=== PATIENT | male | born 1980 | race Caucasian/White ===

== ENCOUNTER → 2024-02-04 | Outpatient (CLI) | payer BC | END | disposition home or self-care (01) | LOC: LABWHC1 10:41 | PROVIDERS: ATTEND Surgery Plastic and Reconstructive Surgery | DX: Z01.89 Encounter for other specified special examinations (principal); R00.1 Bradycardia, unspecified | CPT/HCPCS: 36415; 93005 ==

== ENCOUNTER 2024-02-26 09:14 | Day surgery (SDC) | payer BC ==
--- NOTE | 2024-02-26 07:40 | P.GSHP ---
History of Present Illness H&P Date: 02/26/24 CHIEF COMPLAINT: Colon screen HISTORY OF PRESENT ILLNESS: The patient is a 43-year-old male who presents for colon screen. Lower endoscopy was offered for further evaluation and management. PAST MEDICAL HISTORY: Please see list. PAST SURGICAL HISTORY: Please see list. MEDICATIONS: Please see list. ALLERGIES: Please see list. SOCIAL HISTORY: No illicit drug use FAMILY HISTORY: No reports of Crohn disease or ulcerative colitis. REVIEW OF ORGAN SYSTEMS: CONSTITUTIONAL: No reports of fevers or chills. PHYSICAL EXAM: VITAL SIGNS: Stable GENERAL: Well-developed pleasant in no acute distress. HEENT: No scleral icterus. Extraocular movements grossly intact. Moist buccal mucosa. NECK: Supple without lymphadenopathy. CHEST: Unlabored respirations. Equal bilateral excursions. CARDIOVASCULAR: Regular rate and rhythm. Distal 2+ pulses. ABDOMEN: Soft, nontender, nondistended. MUSCULOSKELETAL: No clubbing, cyanosis, or edema. ASSESSMENT: 1. Colon screen. PLAN: 1. Recommend proceeding with a lower endoscopy Past Medical History Past Medical History: GERD/Reflux Additional Past Medical History / Comment(s): Routine colonoscopy. History of Any Multi-Drug Resistant Organisms: None Reported Additional Past Surgical History / Comment(s): Immature palate. Past Anesthesia/Blood Transfusion Reactions: No Reported Reaction Smoking Status: Former smoker - Past Family History Father Family Medical History: No Reported History Mother Family Medical History: Cancer Medications and Allergies Home Medications Medication Instructions Recorded Confirmed Type [facility] Pen 1 dose INHALATION DAILY PRN 02/24/24 02/24/24 History Ibuprofen [Motrin Ib] 200 mg PO Q6H PRN 02/24/24 02/24/24 History Allergies Allergy/AdvReac Type Severity Reaction Status Date / Time seasonal Allergy runny Uncoded 02/24/24 13:50 nose, itchy eyes
[~2024-02-26 09:14] MED LIST: LIDOCAINE 1% (10MG/ML) FOR IV START INTRADERMA PRN
[2024-02-26 09:44] VITALS: RESP 16; TEMP 98.1
[2024-02-26] MEDS: LACTATED RINGERS 1,000 ML IV SCH (09:45)
[2024-02-26] MEDS ORDERED: PROPOFOL 10 MG/ML 20 ML VIAL IV ONE (09:50)
--- NOTE | 2024-02-26 10:16 | P.PCN ---
Date of Procedure: 02/26/24 Description of Procedure: PREOPERATIVE DIAGNOSIS: Colonoscopy screening POSTOPERATIVE DIAGNOSIS: Tubular adenoma sigmoid colon Sigmoid diverticulosis OPERATION: Colonoscopy to the ileocecal valve and appendiceal orifice, cecum Colonoscopy with hot snare polypectomy SURGEON: Quyen Norwood MD. ANESTHESIA: MAC. INDICATIONS: The patient is an 43-year-old male who presents for further screening. Benefits and risks were described and informed consent was obtained. DESCRIPTION OF PROCEDURE: The patient had undergone GoLytely prep. The patient had been brought into the operating room and laid in the left lateral decubitus position. After adequate intravenous sedation, the rectum was examined with 2% lidocaine jelly. The prostate was unremarkable. No external hemorrhoids were encountered. The rectal tone was within normal limits. No lesions were palpated in the rectal vault. An Olympus colonoscope was advanced until the cecum, ileocecal valve and appendiceal orifice were clearly viewed. The prep was good. Sigmoid diverticulosis was encountered. Colonic polyps were found and removed. No evidence of focal colitis was found. Retroflexion of the scope demonstrated grade 2 internal hemorrhoids without active bleeding or inflammation. The colon was desufflated. The patient had tolerated the procedure well. Withdrawal time was over 6 minutes. FINDINGS: Aronchick preparation quality scale 1 (1-5) Internal hemorrhoids, grade 1 External hemorrhoids, grade 1. No arteriovenous malformations. Sigmoid diverticulosis Removal of 1 polyps: - Snare polypectomy 20 cm from the anal verge, 5 mm tubulovillous adenoma No focal colitis. RECOMMENDATIONS: Colonoscopy in 3 years2026 Plan - Discharge Summary Discharge Rx Participant: No New Discharge Prescriptions: Continue [facility] Pen 1 dose INHALATION DAILY PRN PRN Reason: Anxiety Ibuprofen [Motrin Ib] 200 mg PO Q6H PRN PRN Reason: Pain Discharge Medication List Hhc Pen 1 dose INHALATION DAILY PRN 02/24/24 [History] Ibuprofen [Motrin Ib] 200 mg PO Q6H PRN 02/24/24 [History] Follow up Appointment(s)/Referral(s): Quyen Norwood MD [STAFF PHYSICIAN] - 03/10/24 6:15 pm (TELEHEALTH) Patient Instructions/Handouts: Diverticulosis (DC), Colorectal Polyps (GEN) Activity/Diet/Wound Care/Special Instructions: Repeat colonoscopy in 3 years2026 Discharge Disposition: HOME SELF-CARE
[2024-02-26 10:40] VITALS: BP 113/69; PULSE 74
== END 2024-02-26 10:55 | disposition home or self-care (01) ==
LOC: ORWHC2ENDO 09:14
PROVIDERS: ATTEND Surgery Plastic and Reconstructive Surgery
DX: Z12.11 Encounter for screening for malignant neoplasm of colon (principal); K57.30 Diverticulosis of large intestine without perforation or abscess without bleeding; K64.0 First degree hemorrhoids; K21.9 Gastro-esophageal reflux disease without esophagitis; Z87.891 Personal history of nicotine dependence; Z79.899 Other long term (current) drug therapy
CPT/HCPCS: 88305; 45385; J2704

== ENCOUNTER → 2024-02-27 | Day surgery (SDC) | payer BC ==
[~2024-02-27] MED LIST changes: +DEXAMETHASONE SOD PHOSPHATE 4 MG/ML 1 ML VIAL ONE; +GLYCOPYRROLATE 0.2 MG/ML 2 ML VIAL ONE; +HYDROmorphone (PF) 1 MG/ML ONE; +HYDROmorphone 0.5 MG/0.5 ML SYRINGE IVP PRN; +KETOROLAC 30 MG/ML 1 ML VIAL ONE; +LIDOCAINE 1% INJ 10MG/ML (20 ML MDV) ONE; +LIDOCAINE 4% LTA KIT (4 ML) TOPICAL ONE; +MIDAZOLAM 2 MG/2 ML VIAL ONE; +NEOSTIGMINE 1 MG/ML 10 ML VIAL ONE; +ONDANSETRON 4 MG/2 ML VIAL IVP PRN; +PROPOFOL 10 MG/ML 20 ML VIAL IV ONE; +ROCURONIUM 10 MG/ML (5 ML VIAL) IV ONE; +ROPIVACAINE 5 MG/ML 30 ML VIAL ONE; +SCOPOLAMINE 1 MG/72 HR PATCH TRANSDERM ONE; +SUCCINYLCHOLINE CHLORIDE 200 MG/10 ML VIAL IV ONE; +fentaNYL (PF) 50 MCG/ML 2 ML AMP ONE
--- NOTE | 2024-02-27 10:53 | P.GSHP ---
History of Present Illness H&P Date: 02/27/24 CHIEF COMPLAINT: Inguinal hernia, right. HISTORY OF PRESENT ILLNESS: The patient is a 43-year-old male who presents with a history of swelling and pain along the right groin. He has noted increased swelling including pain of the area. Now he presents for repair of his inguinal hernia. PAST MEDICAL HISTORY: Please see list. PAST SURGICAL HISTORY: Please see list. MEDICATIONS: Please see list. ALLERGIES: Please see list. SOCIAL HISTORY: No illicit drug use FAMILY HISTORY: No reports of Crohn disease or ulcerative colitis. REVIEW OF ORGAN SYSTEMS: CONSTITUTIONAL: No reports of fevers or chills. No reports of weight loss despite prior attempts. GI: Denies any blood in stools or constipation. PHYSICAL EXAM: VITAL SIGNS: Stable GENERAL: Well-developed pleasant in no acute distress. HEENT: No scleral icterus. Extraocular movements grossly intact. Moist buccal mucosa. NECK: Supple without lymphadenopathy. CHEST: Unlabored respirations. Equal bilateral excursions. CARDIOVASCULAR: Regular rate and rhythm. Distal 2+ pulses. ABDOMEN: Soft, nondistended. No peritoneal signs. Moderate tenderness right lower quadrant MUSCULOSKELETAL: No clubbing, cyanosis, or edema. ASSESSMENT: 1. Inguinal hernia, right initial and symptomatic. PLAN: 1. Recommend proceeding robotic inguinal repair with mesh with possible bilateral approach. 2. Benefits and risks of surgical intervention was discussed including possibility of open technique. 3. DVT prophylaxis. 4. Antibiotic prophylaxis. 5. Non narcotic pain management including abdominal wall block described 6. Blood sugar glucose described. 7. Weight loss management described. 8. Obtain CBC and CMP on day of procedure 9. Flomax preop to address urinary retention Past Medical History Past Medical History: GERD/Reflux History of Any Multi-Drug Resistant Organisms: None Reported Additional Past Surgical History / Comment(s): Immature palate surgery Past Anesthesia/Blood Transfusion Reactions: No Reported Reaction Smoking Status: Former smoker - Past Family History Mother Family Medical History: Cancer Father Family Medical History: No Reported History Medications and Allergies Home Medications Medication Instructions Recorded Confirmed Type [facility] Pen 1 dose INHALATION DAILY PRN 02/24/24 02/26/24 History Ibuprofen [Motrin Ib] 200 mg PO Q6H PRN 02/24/24 02/26/24 History Allergies Allergy/AdvReac Type Severity Reaction Status Date / Time seasonal Allergy runny Uncoded 02/24/24 13:50 nose, itchy eyes
[2024-02-27] MEDS: LIDOCAINE 1% (10MG/ML) FOR IV START INTRADERMA ONE (12:43)
[2024-02-27] MEDS: LACTATED RINGERS 1,000 ML IV SCH (12:43)
[2024-02-27] MEDS: TAMSULOSIN 0.4 MG CAP.ER.24H PO STA (12:48)
[2024-02-27] MEDS: ACETAMINOPHEN TAB 500 MG TAB PO PRN (12:48)
[2024-02-27] MEDS: MELOXICAM 7.5 MG TAB PO PRN (12:48)
[2024-02-27] MEDS: DEXAMETHASONE SOD PHOSPHATE 4 MG/ML 1 ML VIAL IV ONE (12:50)
[2024-02-27] MEDS: ONDANSETRON 4 MG/2 ML VIAL IVP ONE (12:51)
[2024-02-27] MEDS: MIDAZOLAM 2 MG/2 ML VIAL IVP ONE (13:00)
[2024-02-27 13:01] LABS: ALT 60 U/L (4-49); AST 30 U/L (17-59); African American GFR (CKD) >90 (>60 ml/min/1.73 sqM); Albumin 4.1 g/dL (3.5-5.0); Alkaline Phosphatase 77 U/L (38-126); Anion Gap 3 mmol/L; Blood Urea Nitrogen 16 mg/dL (9-20); Carbon Dioxide 28 mmol/L (22-30); Chloride 109 mmol/L (98-107); Glucose 98 mg/dL (74-99); Non-African American GFR(CKD) >90 (>60 ml/min/1.73 sqM); Potassium 4.1 mmol/L (3.5-5.1); Sodium 140 mmol/L (137-145); Total Bilirubin 0.8 mg/dL (0.2-1.3); Total Protein 6.5 g/dL (6.3-8.2)
[2024-02-27 13:03] LABS: Basophils % (A) 0 %; Eosinophils # (A) 0.1 k/uL (0-0.7); Eosinophils % (A) 2 %; HCT 49.5 % (39.0-53.0); HGB 17.4 gm/dL (13.0-17.5); Lymphocytes # (A) 2.1 k/uL (1.0-4.8); Lymphocytes % (A) 30 %; MCH 30.4 pg (25.0-35.0); MCV 86.7 fL (80.0-100.0); Mean Platelet Volume 7.7; Monocytes # (A) 0.4 k/uL (0-1.0); Monocytes % (A) 6 %; Neutrophils # (A) 4.2 k/uL (1.3-7.7); Neutrophils % (A) 60 %; Platelet Count 230 k/uL (150-450); RBC 5.71 m/uL (4.30-5.90); RDW 11.6 % (11.5-15.5)
[2024-02-27] MEDS: fentaNYL (PF) 50 MCG/ML 2 ML AMP IVP ONE (13:05)
--- NOTE | 2024-02-27 13:13 | P.ANPRN ---
Procedure Note - Anesthesia - Nerve Block Performed Bilateral Erector Spinae Single Time Out Performed: Yes Date of Procedure: 02/27/24 Procedure Start Time: 13:00 Procedure Stop Time: 13:06 Location of Patient: PreOp Indication: Acute Post-Operative Pain, Analgesia, Requested by Surgeon Sedation Type: Sedate with meaningful contact maintained Preparation: Sterile Prep Position: Prone Needle Types: Pajunk Needle Gauge: 21 Ultrasound used to visualize needle placement: Yes Ultrasound used to observe medication spread: Yes Injectate: 0.5% Ropivacaine (see comment for volume) (Ropiv 20 ml + Decadron 4mg----Each order dispatcher chief. L1 level) Blood Aspirated: No Pain Paresthesia on Injection Noted: No Resistance on Injection: Normal Image Stored and Saved: Yes Events: Uneventful and Well Tolerated
[2024-02-27] MEDS: HEPARIN SODIUM,PORCINE 5,000 UNIT/ML 1 ML VIAL SQ PRN (13:19)
[2024-02-27] MEDS: BUPIVACAINE (PF) 0.5% 30 ML VIAL SQ ONE (14:13)
[2024-02-27] MEDS: LIDOCAINE 1%-EPI 1:100,000 20 ML VIAL SQ ONE (14:53)
[2024-02-27] MEDS: LACTATED RINGERS 1,000 ML IV ONE (16:14)
[2024-02-27 16:50] VITALS: TEMP 97.2
[2024-02-27 16:51] VITALS: RESP 14
--- NOTE | 2024-02-27 17:02 | P.OP ---
Date of Procedure: 02/27/24 Description of Procedure: SURGEON: QUYEN NORWOOD MD PREOPERATIVE DIAGNOSES: 1. Right inguinal hernia, initial 2. Asthma 3. Elevated liver enzymes 4. Gastroesophageal reflux disease POSTOPERATIVE DIAGNOSES: 1. Right inguinal hernia, initial, indirect 2. Asthma 3. Elevated liver enzymes 4. Gastroesophageal reflux disease 5. Abdominal adhesions, periumbilical 6. Right obturator hernia, initial OPERATION: 1. Robotic-assisted da Randal Xi laparoscopic reduction repair of initial inc arcerated right indirect inguinal hernia with mesh, 11.[address] 2. Robotic-assisted da Randal Xi laparoscopic lysis of adhesions 3. Excision of subfascial right inguinal lipoma, 9 x 6 cm ANESTHESIA: General with local anesthetic ESTIMATED BLOOD LOSS: 5 mL. SPECIMENS: 1. Incarcerated right inguinal lipoma COMPLICATIONS: None. FINDINGS: 1. Incarcerated right inguinal hernia 2 cm with dilated internal/external inguinal ring 2. Reconstruction of internal and external inguinal ring 3. Subfascial lipoma 9 x 6 cm, right groin 4. Right obturator hernia INDICATIONS: The patient is a 89year-old male who presents with history of initial right inguinal hernia. Now he presents for definitive surgical intervention. Laparoscopic versus open and robotic approaches were discussed including bilateral approach. Benefits and risks including bleeding, infection, chronic groin pain, sterility were reviewed. Placement of mesh was also described. Informed consent was obtained. DESCRIPTION: In the preoperative area, an abdominal block was placed per anesthesia. The patient was brought to the operating room and initially laid in supine position. The abdomen had been prepped and draped in standard sterile fashion. Ioban draping was also placed. Prior to incision, a timeout protocol was confirmed with surgical team regarding patient's name including procedures to be performed. Initial positioning for the robotic assisted ports were selected 20 cm superior to the target anatomy. A 0 degree 5 mm laparoscopic trocar entry was performed at the left upper quadrant. The abdomen was insufflated to 15 mmHg which he tolerated well. Diagnostic laparoscopy demonstrated no injury to bowel, viscera or mesentery. Adhesions about the umbilicus omentum to abdominal wall was identified. Along the right groin, indirect hernia involving incarcerated omentum was found. The left groin was unremarkable for indirect or direct inguinal hernia. Next, along the epigastrium, 8 mm robot trocar was placed. An 8-mm robotic trocar was placed under direct visualization at the right upper quadrant. An 8 mm port was placed at the left upper quadrant. All trocars were positioned between 10-cm apart from each other. An accessory 12 mm trocar was placed along the right upper abdominal wall. The inguinal contents were reduced after pressure. The ThinkSuit XI robot was primed, draped, prepared for docking along upper abdomen of the patient. The patient was positioned 14 steep Trendelenburg position. I then went to the ThinkSuit Xi console. The nurse practitioner physicians assistant was at bedside for exchange of the robot arms and equipment. Omental adhesions to the umbilicus identified and lysed using scissors with cautery. Attention was brought to the right groin. The right inguinal hernia sac was evaginated whereby the peritoneum was scored using Endo scissors with cautery and vessel sealer . As the hernia sac with incarcerated subfascial lipoma was reduced and resected of the obturator and inguinal type. A concurrent obturator hernia was found of the right groin and also similarly reduced. The peritoneal sac of the hernia was stripped. The sac was resected and then passed off for further pathological analysis. The size of the hernia defect was 2 cm with intraoperative films obtained. Dilated internal and external ring were identified. Using a 2-0 VLOC nonabsorbable, the dilated external ring was reapproximated from lateral to medial involving the shelving portion of the inguinal ligament and conjoined tendon. Similarly, the internal ring was reapproximated from lateral to medial using the floor of the inguinal ligament and conjoined tendon. The peritoneal defect of the right inguinal hernia site was closed using a running pursestring suture. The obturator inguinal hernia sac was excised and incorporated in the closure of the peritoneum using nonabsorbable pursestring suture. As an onlay, an 11.[address] mesh by [employer] was cut in half and entered into the abdominal cavity. The mesh was tacked to the pelvis using 2-0 VLOC 9- inch length sutures. A final endoscopic imaging was obtained. The robot was undocked from the patient's bedside. I then rescrubbed into the case. Insufflation was released from the abdominal cavity and all instruments were removed from the abdominal cavity. The rest of incisions were reapproximated using 4-0 Monocryl in a running subcuticular fashion. Local anesthetic was placed along the incision including for a bilateral groin block. Incisions were cleansed using dilute hydrogen peroxide. Liquid glue was applied to the skin. At the end of the procedure, the needle, sponge and instrument counts had been verified correct by the floor care technician. The patient had tolerated the procedure well and was taken to the postanesthesia care unit in stable condition. Plan - Discharge Summary Discharge Rx Participant: No New Discharge Prescriptions: New Acetaminophen Tab [Tylenol Tab] 1,000 mg PO Q6HR PRN #30 tablet PRN Reason: Pain Simethicone [Gas-X] 125 mg PO AC-TID PRN #20 capsule PRN Reason: Pain Ibuprofen [Motrin] 600 mg PO Q8HR PRN #30 tab PRN Reason: Pain Continue [facility]hc Pen 1 dose INHALATION DAILY PRN PRN Reason: Anxiety Ibuprofen [Motrin Ib] 200 mg PO Q6H PRN PRN Reason: Pain Discharge Medication List Hhc Pen 1 dose INHALATION DAILY PRN 02/24/24 [History] Ibuprofen [Motrin Ib] 200 mg PO Q6H PRN 02/24/24 [History] Acetaminophen Tab [Tylenol Tab] 1,000 mg PO Q6HR PRN #30 tablet 02/27/24 [Rx] Ibuprofen [Motrin] 600 mg PO Q8HR PRN #30 tab 02/27/24 [Rx] Simethicone [Gas-X] 125 mg PO AC-TID PRN #20 capsule 02/27/24 [Rx] Follow up Appointment(s)/Referral(s): Quyen Norwood MD [STAFF PHYSICIAN] - 03/10/24 6:35 pm Patient Instructions/Handouts: Laparoscopic Herniorrhaphy (IP), Inguinal Hernia Repair (GEN), Deep Vein Thrombosis Prevention (DC) Activity/Diet/Wound Care/Special Instructions: TELEHEALTH - DR WILL CALL YOU BETWEEN 9 am to 8 pm NO LONG DRIVES OR AIRPLANE RIDES OVER 30 MINUTES FOR THE NEXT 2 WEEKS DUE TO HIGH RISK OF PULMONARY EMBOLISM/DVTs Recommend low-fat diet for the next 2 days. No lifting over 10 pounds in 2 weeks until March 12February shower. No bath tub soaks/swimming for two weeks until March 12 Use Tylenol, simethicone and ibuprofen or Aleve scheduled for the next 24-48 hours for best pain relief. Discharge Disposition: HOME SELF-CARE
[2024-02-27 17:39] VITALS: BP 118/75; PULSE 91
== END | disposition home or self-care (01) ==
LOC: OR 12:16
PROVIDERS: ATTEND Surgery Plastic and Reconstructive Surgery
DX: K40.90 Unilateral inguinal hernia, without obstruction or gangrene, not specified as recurrent (principal); J45.909 Unspecified asthma, uncomplicated; G89.18 Other acute postprocedural pain; K66.0 Peritoneal adhesions (postprocedural) (postinfection); K21.9 Gastro-esophageal reflux disease without esophagitis; Z87.891 Personal history of nicotine dependence; Z79.899 Other long term (current) drug therapy
CPT/HCPCS: 49650; S2900; 64999; 80053; 85025

== ENCOUNTER → 2024-03-04 | Outpatient (CLI) | payer BC ==
--- NOTE | 2024-03-08 15:39 | US ---
EXAMINATION TYPE: US gallbladder DATE OF EXAM: 03/04/2024 COMPARISON: NONE CLINICAL INDICATION: Male, 43 years old with history of R10.11 RIGHT UPPER QUADRANT PAIN; RUQ pain, p ostprandial pain TECHNIQUE: Multiple sonographic images of the right upper quadrant are obtained. FINDINGS: EXAM MEASUREMENTS: Liver Length: 16.4 cm Gallbladder Wall: 0.2 cm CBD: 0.6 cm Right Kidney: 11.7x5.7x4.6 cm STITCH RUBBER NOTES: Pancreas: Tail obscured by overlying bowel gas Liver: wnl Gallbladder: wnl. No evidence for gallstones, wall thickening, or surrounding fluid. Evidence for sonographic Peterson's sign: No CBD: upper limits of normal. Right Kidney: No hydronephrosis or masses seen exam limited by bowel gas. IMPRESSION: Common bile duct is at the upper limits of normal for size. Correlate with biliary labs. If there is clinical concern, consider further evaluation with MRCP.
== END | disposition home or self-care (01) ==
LOC: RADUSWWP 07:56
PROVIDERS: ATTEND Surgery Plastic and Reconstructive Surgery
DX: R10.11 Right upper quadrant pain (principal)
CPT/HCPCS: 76705

== ENCOUNTER 2024-12-23 08:56 | Emergency (ER) | payer BC ==
[2024-12-23 09:13] VITALS: RESP 18; TEMP 98.4
[2024-12-23] MEDS: SODIUM CHLORIDE 0.9% 1,000 ML IV SCH (10:12)
[2024-12-23 10:19] LABS: ALT 40 U/L (4-49); AST 28 U/L (17-59); African American GFR (CKD) >90 (>60 ml/min/1.73 sqM); Albumin 4.2 g/dL (3.5-5.0); Alkaline Phosphatase 70 U/L (38-126); Anion Gap 12 mmol/L; Blood Urea Nitrogen 17 mg/dL (9-20); Calcium 9.2 mg/dL (8.4-10.2); Carbon Dioxide 20 mmol/L (22-30); Chloride 108 mmol/L (98-107); Glucose 105 mg/dL (74-99); Lipase 58 U/L (23-300); Non-African American GFR(CKD) >90 (>60 ml/min/1.73 sqM); Potassium 4.2 mmol/L (3.5-5.1); Sodium 140 mmol/L (137-145); Total Bilirubin 0.5 mg/dL (0.2-1.3); Total Protein 6.7 g/dL (6.3-8.2)
[2024-12-23 10:23] LABS: Appearance,Urine Clear (Clear); Bilirubin,Urine Negative (Negative); Blood,Urine Negative (Negative); Color,Urine Light Yellow; Glucose,Urine (UA) Negative (Negative); Ketones,Urine Negative (Negative); Leukocyte Esterase,Urine Negative (Negative); Nitrite,Urine Negative (Negative); PH, Urine 6.5 (5.0-8.0); Protein,Urine Negative (Negative); Specific Gravity,Urine 1.024 (1.001-1.035); Urobilinogen,Urine <2.0 mg/dL (<2.0)
[2024-12-23 10:30] LABS: Basophils % (A) 0 %; Eosinophils # (A) 0.1 k/uL (0-0.7); Eosinophils % (A) 2 %; HCT 48.7 % (39.0-53.0); HGB 16.5 gm/dL (13.0-17.5); Lymphocytes # (A) 1.4 k/uL (1.0-4.8); Lymphocytes % (A) 25 %; MCH 30.1 pg (25.0-35.0); MCHC 33.9 g/dL (31.0-37.0); MCV 88.8 fL (80.0-100.0); Mean Platelet Volume 7.8; Monocytes # (A) 0.3 k/uL (0-1.0); Monocytes % (A) 6 %; Neutrophils # (A) 3.7 k/uL (1.3-7.7); Neutrophils % (A) 65 %; Platelet Count 256 k/uL (150-450); RBC 5.48 m/uL (4.30-5.90); RDW 11.8 % (11.5-15.5); WBC 5.7 k/uL (3.8-10.6)
--- NOTE | 2024-12-23 11:06 | CT ---
EXAMINATION TYPE: CT abdomen pelvis w con DATE OF EXAM: 12/23/2024 10:47 AM COMPARISON: None. CLINICAL INDICATION: Male, 44 years old with history of abdominal pain lower, Lower abdominal pain, d iarrhea x 3 weeks, noticed blood today. ISO TECHNIQUE:CT scan of the abdomen and pelvis is performed without Oral Contrast and with IV Contrast, patient injected with 100 mL of Isovue 370. CT DLP: 1131.4 mGycm, Automated exposure control for dose reduction was used. FINDINGS: LUNG BASES-: No visible nodule. No infiltrate. LIVER/GB: No calcified gallstones. No space occupying hepatic lesion. Biliary tree is of normal ca liber. PANCREAS: No inflammation. No distinct mass. SPLEEN: No splenic enlargement. No lesion seen. ADRENALS: No nodule. No thickening. KIDNEYS/BLADDER: No hydronephrosis. No nephrolithiasis. No distinct renal mass. Urinary bladder g rossly unremarkable. BOWEL: Normal appendix. Normal bowel caliber. Jejunal wall thickening may reflect a small bowel ente ritis. Correlate clinically. Remaining small and large bowel are of normal caliber. GENITAL ORGANS: No gross abnormality. LYMPH NODES: No greater than 1cm abdominal or pelvic lymph nodes are appreciated. AORTA: No significant abnormality. OSSEOUS STRUCTURES: No significant abnormality is seen. OTHER: No significant additional abnormality is seen. Small fat-containing inguinal hernias. IMPRESSION: 1. Jejunal wall thickening may reflect a small bowel enteritis. Correlate clinically. [facility], , 12/23/2024 11:03 AM
--- NOTE | 2024-12-23 11:29 | ED ---
Abdominal Pain HPI - General Chief Complaint: Abdominal Pain Stated Complaint: blood in stool Time Seen by Provider: 12/23/24 09:16 Source: patient, RN notes reviewed Mode of arrival: ambulatory Limitations: no limitations - History of Present Illness Initial Comments: 44-year-old male presents emergency department complaint of abdominal comfort. Patient states been having increased abdominal discomfort and states that he has not been sleeping well secondary to the pain. Patient states that he noticed some blood when he wiped he has been having large amount of stool output patient states he has a family history of IBS. Patient had a colonoscopy 1 year ago showed small polyp. Patient no other acute findings. Patient denies chest pain shortness of breath no other associated symptoms. - Related Data Home Medications Medication Instructions Recorded Confirmed [facility] Pen 1 dose INHALATION DAILY PRN 02/24/24 02/27/24 Ibuprofen [Motrin Ib] 200 mg PO Q6H PRN 02/24/24 02/27/24 Previous Rx's Medication Instructions Recorded Acetaminophen Tab [Tylenol Tab] 1,000 mg PO Q6HR PRN #30 tablet 02/27/24 Ibuprofen [Motrin] 600 mg PO Q8HR PRN #30 tab 02/27/24 Simethicone [Gas-X] 125 mg PO AC-TID PRN #20 capsule 02/27/24 Ondansetron Odt [Zofran Odt] 4 mg PO Q8HR PRN #10 tab 12/23/24 Pantoprazole [Protonix] 40 mg PO DAILY #30 tab 12/23/24 Allergies Allergy/AdvReac Type Severity Reaction Status Date / Time seasonal Allergy runny Uncoded 12/23/24 09:13 nose, itchy eyes Review of Systems ROS Statement: Those systems with pertinent positive or pertinent negative responses have been documented in the HPI. ROS Other: All systems not noted in ROS Statement are negative. Past Medical History Past Medical History: GERD/Reflux Additional Past Medical History / Comment(s): IBS History of Any Multi-Drug Resistant Organisms: None Reported Additional Past Surgical History / Comment(s): Immature palate surgery Past Anesthesia/Blood Transfusion Reactions: No Reported Reaction Past Psychological History: No Psychological Hx Reported Smoking Status: Former smoker Past Alcohol Use History: None Reported Past Drug Use History: Marijuana - Past Family History Mother Family Medical History: Cancer Father Family Medical History: No Reported History General Exam Limitations: no limitations General appearance: alert, in no apparent distress Head exam: Present: atraumatic, normocephalic, normal inspection Eye exam: Present: normal appearance, PERRL, EOMI. Absent: scleral icterus, conjunctival injection, periorbital swelling ENT exam: Present: normal exam, normal oropharynx, mucous membranes moist Neck exam: Present: normal inspection, full ROM. Absent: tenderness, meningismus, lymphadenopathy Respiratory exam: Present: normal lung sounds bilaterally. Absent: respiratory distress, wheezes, rales, rhonchi, stridor Cardiovascular Exam: Present: regular rate, normal rhythm, normal heart sounds. Absent: systolic murmur, diastolic murmur, rubs, gallop, clicks GI/Abdominal exam: Present: soft, tenderness, normal bowel sounds. Absent: distended, guarding, rebound, rigid Neurological exam: Present: alert, oriented X3, CN II-XII intact. Absent: motor sensory deficit Course Vital Signs 12/23/24 09:09 Temperature 98.4 F Pulse Rate 69 Respiratory 18 Rate Blood Pressure 113/75 O2 Sat by Pulse 98 Oximetry Medical Decision Making - Medical Decision Making Was pt. sent in by a medical professional or institution (, PA, EYE DROPPER ASSEMBLER, urgent care, hospital, or senior care...) When possible be specific @ -No Did you speak to anyone other than the patient for history (EMS, parent, family, police, friend...)? What history was obtained from this source @ -No Did you review nursing and triage notes (agree or disagree)? Why? @ -I reviewed and agree with nursing and triage notes Were old charts reviewed (outside hosp., previous admission, EMS record, old EKG, old radiological studies, urgent care reports/EKG's, senior care records)? Report findings @ -No old charts were reviewed Differential Diagnosis (chest pain, altered mental status, abdominal pain women, abdominal pain men, vaginal bleeding, weakness, fever, dyspnea, syncope, headache, dizziness, GI bleed, back pain, seizure, CVA, palpatations, mental health, musculoskeletal)? @ -Differential Abdominal Pain Men: Appendicitis, cholecystitis, diverticulosis, ischemic bowel, pancreatitis, hepatitis, UTI, gastroenteritis, AAA, incarcerated hernia, bowel obstruction, constipation, inflammatory bowel, hepatitis, peptic ulcer disease, splenic infarction, perforated viscus, testicular torsion, this is not meant to be an all-inclusive list EKG interpreted by me (3pts min.). @ -None X-rays interpreted by me (1pt min.). @ -None done CT interpreted by me (1pt min.). @ -None done U/S interpreted by me (1pt. min.). @ -None done What testing was considered but not performed or refused? (CT, X-rays, U/S, labs)? Why? @ -None What meds were considered but not given or refused? Why? @ -None Did you discuss the management of the patient with other professionals (matty hutson i.e. , PA, EYE DROPPER ASSEMBLER, lab, RT, psych nurse, hospice social worker, senior net c developer, teacher, strategic intelligence officer, shoe caser)? Give summary @ -No Was smoking cessation discussed for >3mins.? @ -No Was critical care preformed (if so, how long)? @ -No Were there social determinants of health that impacted care today? How? (Homelessness, low income, unemployed, alcoholism, drug addiction, transportation, low edu. Level, literacy, decrease access to med. care, [place] [facility], rehab)? @ -No Was there de-escalation of care discussed even if they declined (Discuss DNR or withdrawal of care, Hospice)? DNR status @ -No What co-morbidities impacted this encounter? (DM, HTN, Smoking, COPD, CAD, Cancer, CVA, ARF, Chemo, Hep., AIDS, mental health diagnosis, sleep apnea, morbid obesity)? @ -None Was patient admitted / discharged? Hospital course, mention meds given and route, prescriptions, significant lab abnormalities, going to OR and other pertinent info. @ -Discharge patient CT shows evidence of enteritis, patient laboratory studies unremarkable patient may have some rectal bleeding from internal hemorrhoids. Undiagnosed new problem with uncertain prognosis? @ -No Drug Therapy requiring intensive monitoring for toxicity (Heparin, Nitro, Insulin, Cardizem)? @ -No Were any procedures done? @ -No Diagnosis/symptom? @Enteritis, abdominal pain Acute, or Chronic, or Acute on Chronic? @ -Acute Uncomplicated (without systemic symptoms) or Complicated (systemic symptoms)? @ -Uncomplicated Side effects of treatment? @ -No Exacerbation, Progression, or Severe Exacerbation? @ -No Poses a threat to life or bodily function? How? (Chest pain, [place], [place], pneumonia, PE, COPD, DKA, ARF, appy, cholecystitis, CVA, Diverticulitis, Homicidal, Suicidal, threat to staff... and all critical care pts) @ -No - Lab Data Result diagrams: 12/23/24 09:49 12/23/24 09:49 Lab Results 12/23/24 12/23/24 12/23/24 Range/Units 09:49 09:49 09:49 WBC 5.7 (3.8-10.6) k/uL RBC 5.48 (4.30-5.90) m/uL Hgb 16.5 (13.0-17.5) gm/dL Hct 48.7 (39.0-53.0) % MCV 88.8 (80.0-100.0) fL MCH 30.1 (25.0-35.0) pg MCHC 33.9 (31.0-37.0) g/dL RDW 11.8 (11.5-15.5) % Plt Count 256 (150-450) k/uL MPV 7.8 Neutrophils % 65 % Lymphocytes % 25 % Monocytes % 6 % Eosinophils % 2 % Basophils % 0 % Neutrophils # 3.7 (1.3-7.7) k/uL Lymphocytes # 1.4 (1.0-4.8) k/uL Monocytes # 0.3 (0-1.0) k/uL Eosinophils # 0.1 (0-0.7) k/uL Basophils # 0.0 (0-0.2) k/uL Sodium 140 (137-145) mmol/L Potassium 4.2 (3.5-5.1) mmol/L Chloride 108 H (98-107) mmol/L Carbon Dioxide 20 L (22-30) mmol/L Anion Gap 12 mmol/L BUN 17 (9-20) mg/dL Creatinine 0.88 (0.66-1.25) mg/dL Est GFR (CKD-EPI)AfAm >90 (>60 ml/min/1.73 sqM) Est GFR (CKD-EPI)NonAf >90 (>60 ml/min/1.73 sqM) Glucose 105 H (74-99) mg/dL Plasma Lactic Acid Santosh (0.7-2.0) mmol/L Calcium 9.2 (8.4-10.2) mg/dL Total Bilirubin 0.5 (0.2-1.3) mg/dL AST 28 (17-59) U/L ALT 40 (4-49) U/L Alkaline Phosphatase 70 (38-126) U/L Total Protein 6.7 (6.3-8.2) g/dL Albumin 4.2 (3.5-5.0) g/dL Lipase 58 (23-300) U/L Urine Color Light Yellow Urine Appearance Clear (Clear) Urine pH 6.5 (5.0-8.0) Ur Specific [place] 1.024 (1.001-1.035) Urine Protein Negative (Negative) Urine Glucose (UA) Negative (Negative) Urine Ketones Negative (Negative) Urine Blood Negative (Negative) Urine Nitrite Negative (Negative) Urine Bilirubin Negative (Negative) Urine Urobilinogen <2.0 (<2.0) mg/dL Ur Leukocyte Esterase Negative (Negative) 12/23/24 Range/Units 09:49 WBC (3.8-10.6) k/uL RBC (4.30-5.90) m/uL Hgb (13.0-17.5) gm/dL Hct (39.0-53.0) % MCV (80.0-100.0) fL MCH (25.0-35.0) pg MCHC (31.0-37.0) g/dL RDW (11.5-15.5) % Plt Count (150-450) k/uL MPV Neutrophils % % Lymphocytes % % Monocytes % % Eosinophils % % Basophils % % Neutrophils # (1.3-7.7) k/uL Lymphocytes # (1.0-4.8) k/uL Monocytes # (0-1.0) k/uL Eosinophils # (0-0.7) k/uL Basophils # (0-0.2) k/uL Sodium (137-145) mmol/L Potassium (3.5-5.1) mmol/L Chloride (98-107) mmol/L Carbon Dioxide (22-30) mmol/L Anion Gap mmol/L BUN (9-20) mg/dL Creatinine (0.66-1.25) mg/dL Est GFR (CKD-EPI)AfAm (>60 ml/min/1.73 sqM) Est GFR (CKD-EPI)NonAf (>60 ml/min/1.73 sqM) Glucose (74-99) mg/dL Plasma Lactic Acid Santosh 0.8 (0.7-2.0) mmol/L Calcium (8.4-10.2) mg/dL Total Bilirubin (0.2-1.3) mg/dL AST (17-59) U/L ALT (4-49) U/L Alkaline Phosphatase (38-126) U/L Total Protein (6.3-8.2) g/dL Albumin (3.5-5.0) g/dL Lipase (23-300) U/L Urine Color Urine Appearance (Clear) Urine pH (5.0-8.0) Ur Specific [place] (1.001-1.035) Urine Protein (Negative) Urine Glucose (UA) (Negative) Urine Ketones (Negative) Urine Blood (Negative) Urine Nitrite (Negative) Urine Bilirubin (Negative) Urine Urobilinogen (<2.0) mg/dL Ur Leukocyte Esterase (Negative) Disposition Clinical Impression: Abdominal pain, Enteritis Disposition: HOME SELF-CARE Condition: Stable Instructions (If sedation given, give patient instructions): Abdominal Pain (ED), Enteritis (ED) Additional Instructions: Please return to the Emergency Department if symptoms worsen or any other concerns. Prescriptions: Pantoprazole [Protonix] 40 mg PO DAILY #30 tab Ondansetron Odt [Zofran Odt] 4 mg PO Q8HR PRN #10 tab PRN Reason: Nausea Is patient prescribed a controlled substance at d/c from ED?: No Referrals: Veronica Pretty MD [STAFF PHYSICIAN] - 1-2 days Time of Disposition: 11:28
[2024-12-23 12:01] VITALS: BP 128/62; PULSE 78
== END 2024-12-23 12:00 | disposition home or self-care (01) ==
LOC: EC 08:56
DX: K52.9 Noninfective gastroenteritis and colitis, unspecified (principal); Z87.891 Personal history of nicotine dependence; Z88.8 Allergy status to other drugs, medicaments and biological substances
CPT/HCPCS: 36415; 80053; 83605; 83690; 85025; 81003; 74177; 99284; 96360; 96361; Q9967